=== PATIENT | female | born 1975 | race Two or more races ===

== ENCOUNTER 2018-02-01 22:54 | Emergency (ER) | payer OTHER ==
[~2018-02-01] VITALS: Ht 157.5 cm; Wt 77.6 kg
[~2018-02-01 22:54] MED LIST: ANTIVERT25 M1 PO; AZITHROMYCIN500 MG PO; IBUPROFEN800 MG PO; ORPH100T PO
[2018-02-02] MEDS ORDERED: VALTREX1000 MG PO (06:51)
[2018-02-02] MEDS ORDERED: DOXYCYCLINE HY100 M2 PO (06:51)
[2018-02-02] MEDS ORDERED: KETO10TA2 PO (06:51)
== END 2018-02-02 09:02 | disposition home or self-care (01) ==
LOC: ER 22:54
DX: R10.2 Pelvic and perineal pain (principal); B00.1 Herpesviral vesicular dermatitis; N70.11 Chronic salpingitis

== ENCOUNTER 2018-06-17 09:00 | Inpatient (IN) | payer OTHER ==
[~2018-06-17] VITALS: Ht 157.5 cm; Wt 74.8 kg
[~2018-06-17 09:00] MED LIST changes: +DOXYCYCLINE HY100 M2 PO; +KETO10TA2 PO; +VALTREX1000 MG PO
[2018-06-17] MEDS ORDERED: LISINOPRIL40 MG PO (11:09)
[2018-06-17] MEDS ORDERED: ATORVASTAT PO (11:10)
[2018-06-24] MEDS ORDERED: LIPITOR40 MG PO (14:49)
== END 2018-06-27 10:00 | disposition home or self-care (01) | DRG 743 ==
LOC: ADM 09:00 → OB/GYN 06-24 05:15 → O/R 06-24 05:15 → SURH 06-24 09:00 → CIR.AMB 06-24 09:00 → EDSTATUS 06-24 09:00 → OB/GYN 06-24 10:28 → SURH 06-24 13:45 → OB/GYN 06-27 10:00
PROVIDERS: ADMIT Obstetrics & Gynecology Gynecology
PROC: 0UT90ZZ Resection of Uterus, Open Approach (ICD-10-PCS; principal; 2018-06-24 13:45)
PROC: 0UT70ZZ Resection of Bilateral Fallopian Tubes, Open Approach (ICD-10-PCS; 2018-06-24 13:45)
DX: D25.1 Intramural leiomyoma of uterus (principal); D25.0 Submucous leiomyoma of uterus; D25.2 Subserosal leiomyoma of uterus; I11.9 Hypertensive heart disease without heart failure